=== PATIENT | female | born 1995 ===

== ENCOUNTER 2020-12-04 20:50 | Emergency (ER) | payer SELFPAY ==
[~2020-12-04] VITALS: Ht 167.6 cm; Wt 95.5 kg
[2020-12-04 21:05] VITALS: TEMP 98.3
[2020-12-04] MEDS ORDERED: LOMOTIL 0.025 M1 TAB PO (22:21)
[2020-12-04 22:45] VITALS: BP 117/76; PULSE 73
== END 2020-12-04 22:45 | disposition home or self-care (01) ==
LOC: COL.ER 20:50
DX: B34.9 Viral infection, unspecified (principal); F17.290 Nicotine dependence, other tobacco product, uncomplicated; Z20.822 Contact with and (suspected) exposure to COVID-19

== ENCOUNTER 2020-12-11 09:09 | Emergency (ER) | payer OTHER ==
[~2020-12-11] VITALS: Ht 167.6 cm; Wt 95.5 kg
[~2020-12-11 09:09] MED LIST: LOMOTIL 0.025 M1 TAB PO
[2020-12-11 09:16] VITALS: TEMP 97.7
[2020-12-11 10:15] LABS: BASO % 0.6 % (0.0-2.0); EOS # 0.4 (0.0-0.7); EOS % 5.9 % (0-4.0); GRAN # 2.7 (1.4-6.5); GRAN % 40.6 % (42.2-75.2); HEMATOCRIT 40.4 % (37.0-47.0); HEMOGLOBIN 13.9 g/dl (12.5-16.0); LYMPH # 2.9 (1.2-3.4); LYMPH % 43.5 % (20.0-51.0); MEAN CELL VOLUME 87 fl (80.0-100.0); MEAN CORPUSCULAR HEMOGLOBIN 30 pg (27.0-31.0); MEAN CORPUSCULAR HGB CONC 34 g/dl (33.0-37.0); MEAN PLATELET VOLUME 10.5 fl (7.4-10.4); MONO # 0.6 (0.1-0.6); MONO % 9.3 % (1.7-9.3); PLATELET COUNT 273 K/mm3 (130-400); RED BLOOD COUNT 4.66 M/mm3 (4.10-5.30); REDCELL DISTRIBUTION WIDTH-CV 12.5 % (11.5-14.5)
[2020-12-11 10:29] LABS: ALANINE AMINOTRANSFERASE 22 U/L (4-34); ALBUMIN 4.2 gm/dL (3.5-5.0); ALKALINE PHOSPHATASE 92 U/L (50-136); ANION GAP 7 mmol/L (7-16); AST,SGOT 31 U/L (15-37); BILIRUBIN,TOTAL 0.4 mg/dL (0.0-1.0); BLOOD UREA NITROGEN 13 mg/dL (7-17); CARBON DIOXIDE 24 mmol/L (22-30); CHLORIDE 107 mmol/L (98-107); CREATININE, serum 0.78 (0.52-1.25); GLUCOSE 104 mg/dL (74-106); LIPASE 84 U/L (23-300); POTASSIUM 3.9 mmol/L (3.4-5.0); SODIUM 138 mmol/L (137-145); TOTAL PROTEIN 7.4 gm/dL (6.4-8.2)
[2020-12-11 10:32] LABS: STREP SCREEN NEGATIVE
[2020-12-11 10:35] LABS: C-REACTIVE PROTEIN < 0.5 mg/dL (0.0-0.9)
[2020-12-11 11:05] LABS: COLLECTION METHOD CLEAN CATCH
[2020-12-11 11:11] LABS: MUCOUS Present /lpf; PH 6 (5-8); SQUAMOUS EPITHELIAL 0-2 /hpf; URINE APPEARANCE Clear; URINE BACTERIA None Seen /hpf; URINE BILIRUBIN Negative (NEGATIVE); URINE BLOOD Negative (NEGATIVE); URINE COLOR Yellow; URINE GLUCOSE Negative (NEGATIVE); URINE KETONE Negative (NEGATIVE); URINE LEUKOCYTE ESTERASE Negative (NEGATIVE); URINE NITRATE Negative (NEGATIVE); URINE PROTEIN(semi-quant) Negative (NEGATIVE); URINE RBC 0-2 /hpf; URINE UROBILINOGEN Negative (NEGATIVE)
[2020-12-11 12:05] VITALS: BP 102/81; PULSE 51
== END 2020-12-11 11:44 | disposition home or self-care (01) ==
LOC: COL.ER 09:09
PROVIDERS: Family Medicine
DX: J06.9 Acute upper respiratory infection, unspecified (principal); F17.290 Nicotine dependence, other tobacco product, uncomplicated
CPT/HCPCS: J2405; J7120

== ENCOUNTER 2021-03-27 18:07 | Emergency (ER) | payer OTHER ==
[~2021-03-27] VITALS: Ht 167.6 cm; Wt 90.9 kg
[2021-03-27 18:17] VITALS: TEMP 99.7
[2021-03-27 19:41] VITALS: BP 117/70; PULSE 90
== END 2021-03-27 19:47 | disposition home or self-care (01) ==
LOC: COL.ER 18:07
DX: J06.9 Acute upper respiratory infection, unspecified (principal); F17.290 Nicotine dependence, other tobacco product, uncomplicated; Z20.822 Contact with and (suspected) exposure to COVID-19

== ENCOUNTER 2021-04-24 21:35 | Emergency (ER) | payer OTHER ==
[~2021-04-24] VITALS: Ht 167.6 cm; Wt 90.9 kg
[2021-04-25] MEDS ORDERED: NORCO 325 MG-51 TAB PO (01:37)
[2021-04-25 02:13] VITALS: BP 121/68; PULSE 108; TEMP 98.2
== END 2021-04-25 02:13 | disposition home or self-care (01) ==
LOC: COL.ER 21:35
DX: S09.90XA Unspecified injury of head, initial encounter (principal); S00.91XA Abrasion of unspecified part of head, initial encounter; F17.210 Nicotine dependence, cigarettes, uncomplicated; W20.8XXA Other cause of strike by thrown, projected or falling object, initial encounter
CPT/HCPCS: J2270

== ENCOUNTER 2021-04-26 16:21 | Emergency (ER) | payer OTHER ==
[~2021-04-26] VITALS: Ht 167.6 cm; Wt 90.9 kg
[~2021-04-26 16:21] MED LIST changes: +NORCO 325 MG-51 TAB PO
[2021-04-26 19:09] LABS: BASO % 0.4 % (0.0-2.0); EOS # 0.1 (0.0-0.7); EOS % 0.7 % (0-4.0); GRAN # 7.5 (1.4-6.5); GRAN % 65.9 % (42.2-75.2); HEMATOCRIT 43.9 % (37.0-47.0); LYMPH % 26.9 % (20.0-51.0); MEAN CELL VOLUME 87 fl (80.0-100.0); MEAN CORPUSCULAR HEMOGLOBIN 30 pg (27.0-31.0); MEAN CORPUSCULAR HGB CONC 34 g/dl (33.0-37.0); MEAN PLATELET VOLUME 10.5 fl (7.4-10.4); MONO # 0.6 (0.1-0.6); MONO % 5.7 % (1.7-9.3); PLATELET COUNT 288 K/mm3 (130-400); RED BLOOD COUNT 5.03 M/mm3 (4.10-5.30); REDCELL DISTRIBUTION WIDTH-CV 12.6 % (11.5-14.5)
[2021-04-26 19:12] LABS: ALBUMIN 4.8 gm/dL (3.5-5.0); BILIRUBIN,TOTAL 0.5 mg/dL (0.0-1.0); CALCIUM 9.8 mg/dL (8.4-10.2); CREATININE, serum 0.83 (0.52-1.25); POTASSIUM 4.1 mmol/L (3.4-5.0); TOTAL PROTEIN 8.7 gm/dL (6.4-8.2)
[2021-04-26 23:53] VITALS: BP 135/71; PULSE 64; TEMP 98.7
== END 2021-04-26 20:52 | disposition home or self-care (01) ==
LOC: COL.ER 16:21
PROVIDERS: Physician Assistant
DX: S09.90XA Unspecified injury of head, initial encounter (principal); F07.81 Postconcussional syndrome; G43.909 Migraine, unspecified, not intractable, without status migrainosus; W22.8XXA Striking against or struck by other objects, initial encounter
CPT/HCPCS: J1200; J2060; J2765; J7030

== ENCOUNTER → 2021-07-27 | Outpatient (CLI) | payer OTHER | LOC: COL.RAD 07:08 | DX: R56.9 Unspecified convulsions (principal) | CPT/HCPCS: A9585 ==

== ENCOUNTER 2021-11-13 12:37 | Emergency (ER) | payer OTHER ==
[~2021-11-13] VITALS: Ht 167.6 cm; Wt 90.0 kg
[2021-11-13 12:57] VITALS: BP 132/85; TEMP 98.1
[2021-11-13 14:07] VITALS: PULSE 79
== END 2021-11-13 14:07 | disposition home or self-care (01) ==
LOC: COL.ER 12:37
DX: U07.1 COVID-19 (principal); F17.200 Nicotine dependence, unspecified, uncomplicated

== ENCOUNTER 2022-06-05 00:43 | Emergency (ER) | payer OTHER ==
[~2022-06-05] VITALS: Ht 167.6 cm; Wt 86.4 kg
[2022-06-05 01:25] VITALS: TEMP 98.1
[2022-06-05] MEDS ORDERED: ZOVIRAX800 MG PO (02:00)
[2022-06-05 02:29] VITALS: BP 110/61; PULSE 80
== END 2022-06-05 02:30 | disposition home or self-care (01) ==
LOC: COL.ER 00:43
DX: N94.9 Unspecified condition associated with female genital organs and menstrual cycle (principal); Z20.2 Contact with and (suspected) exposure to infections with a predominantly sexual mode of transmission; Z28.310 Unvaccinated for COVID-19